=== PATIENT | female | born 1990 | race American Indian/Alaskan Native ===

== ENCOUNTER 2018-02-22 07:03 | Emergency (ER) | payer BC ==
[2018-02-22 07:15] VITALS: BMI 25.8
[2018-02-22 07:20] VITALS: BP 121/64; PULSE 83; TEMP 98.2; O2SAT 97
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
[2018-02-22 07:56] VITALS: RESP 16
== END 2018-02-22 07:47 | disposition home or self-care (01) ==
LOC: ED 07:03
DX: S16.1XXA Strain of muscle, fascia and tendon at neck level, initial encounter (principal); S29.012A Strain of muscle and tendon of back wall of thorax, initial encounter; V49.49XA Driver injured in collision with other motor vehicles in traffic accident, initial encounter; Y92.410 Unspecified street and highway as the place of occurrence of the external cause